=== PATIENT | male | born 1930 | race Caucasian/White ===

== ENCOUNTER 2018-02-21 12:14 | Observation (INO) | payer MEDICARE, OTHER ==
[~2018-02-21] VITALS: Ht 188 cm; Wt 62.3 kg
--- NOTE | ~2018-02-21 | DS ---
PATIENT:FAITH NAVARRO :[birth year] MEDICAL RECORD: [id number] DISCHARGE SUMMARY ADMISSION DATE: 02/21/18 DISCHARGE DATE: 02/22/18 DISCHARGE DIAGNOSES: 1. Atrial fibrillation. 2. Shortness of breath, dyspnea on exertion. 3. Hypertension. 4. Sick sinus syndrome, status post pacemaker. HISTORY AND HOSPITAL COURSE: Mr. Navarro presents with shortness of breath, dyspnea on exertion, atrial fibrillation with rapid response. He is on sotalol. He also has a pacemaker. We performed DC cardioversion, interrogation of the pacemaker with increasing atrial sensitivity and discharged home with no change in medications as he is already on sotalol. Will follow up in 1 month. TRANSINT:[id number] Voice Confirmation ID: [id number] DOCUMENT ID: [id number] DILIA MURRIETA MD at 1710 CC: [id number] DICTATION DATE: 02/22/18 1016 EDGE KITTER: 02/22/18 1201 DIS IN 02/22/18 [facility] [address] [place] [address]
--- NOTE | ~2018-02-21 | HEMODYNAMI ---
PATIENT:FAITH SOTO MEDICAL RECORD: [id number] : [birth year] LOCATION:[facility].211 ADMISSION DATE: 02/21/18 Generatedon:02/22/201810:28 Patient name: FAITH SOTO Patient #: [id number] SSN: : 1930 Date of study: 02/22/2018 Page: Of Hemodynamic Procedure Report Patient Data Patient Demographics Procedure consent was obtained First Name: FAITH Gender: Male Last Name: BRITTANY : 1930 Middle Initial: M Age: 87 year(s) Patient #: [id number] Race: Unknown Additional ID: [id number] Contact details Address: [address] [place] [address] State: [place] City: [place] Zip code: [address] Admission Admission Data Admission Date: 02/21/2018 Admission Time: 12:14 Room #: 2117 Procedure Procedure Types Cath Procedure Diagnostic Procedure Cardioversion External Procedure Description Procedure Date Procedure Date: 02/22/2018 Procedure Start Time: 9:56 Procedure End Time: 10:27 Procedure Staff Name Function Arnoldo Sanz MD Performing Physician Mckenzie Morgan RT Monitor Naresh Rubio RN Nurse Roscoe Arciniega RT Teradata Developer Clay Gottlieb CRNA Additional personnel Procedure Data Cath Procedure Fluoroscopy Diagnostic fluoroscopy Total fluoroscopy Time: 0 time: 0 min min Diagnostic fluoroscopy Total fluoroscopy dose: 0 dose: 0 mGy mGy Contrast Material Contrast Material Type Amount (ml) Isovue 300 0 Estimated blood loss: 0 ml Procedure Complications No complications Procedure Medications Medication Administration Route Dosage Oxygen etCO2 Nasal cannula 6 l/min Refer to Anesthesia Notes for Sedation Medications 0.9% NaCl I.V. 100 ml/hr Hemodynamics Rest Heart Rate: 124 (bpm) Pressure Samples Time Site Value (mmHg) Purpose Heart Use Rate(bpm) 9:56 AO (-5) Snapshot 111 Snapshots Pre Cath Intra NCS Post Cath Vital Signs Time Heart Resp SPO2 etCO2 NIBP (mmHg) Rhythm Pain Sedation Rate (ipm) (%) (mmHg) Status Level (bpm) 9:52:43 104 14 98 23.9 151/116(138) NSR 0 (11) 10(A) , No pain 9:56:55 95 17 99 27.7 128/94(115) NSR 0 (11) 10(A) , No pain 10:00:57 114 16 99 27.7 138/104(130) NSR 0 (11) 10(A) , No pain 10:05:15 105 16 99 27.7 134/62(130) NSR 0 (11) 10(A) , No pain 10:09:19 99 16 99 26.9 150/107(130) NSR 0 (11) 10(A) , No pain 10:13:20 103 16 98 19.4 127/96(113) NSR 0 (11) 10(A) , No pain 10:16:08 60 16 97 17.9 141/78(120) NSR 0 (11) 9(A) , No pain 10:17:43 62 29 95 28.4 135/71(112) NSR 0 (11) 9(A) , No pain 10:21:59 61 16 92 0 122/62(100) NSR 0 (11) 9(A) , No pain 10:26:09 65 16 98 22.4 127/67(102) NSR 0 (11) 9(A) , No pain Medications Time Medication Route Dose Verified Delivered Reason Notes Effectiven ess by by 9:53:59 Oxygen etCO2 6 Arnoldo Infante Per Nasal l/min Yvon Rubio RN physician cannula 9:54:08 Refer to Arnoldo Infante Per Anesthesia Yvon Rubio RN physician Notes for Sedation Medications 9:54:20 0.9% NaCl I.V. 100 Arnoldo Infante Per ml/hr Yvon Rubio RN physician Procedure Log Time Note 9:30:07 Mckenzie Counts RT(R) sent for patient. Start room use. 9:30:49 Time tracking: Regular hours (M-F 7:00 - 5:00) 9:30:54 Plan of Care:Hemodynamics will remain stable., Cardiac rhythm will remain stable., Comfort level will be maintained., Respiratory function will remain adequate., Patient/ family verbilizes understanding of procedure., Procedure tolerated without complication., Recovers from procedure without complications.. 9:45:13 Patient arrived from PCU to CCL 3. Patient remains on bed/stretcher for procedure. 9:45:14 Warm blankets applied, and jordy hugger turned on for patient comfort. 9:45:15 Correct patient and procedure confirmed by team. 9:45:16 Signed procedure consent form obtained from patient. 9:45:16 ECG and BP/O2 sat monitors applied to patient. 9:45:36 Quick Combo opened to sterile field. 9:50:31 Vital chart was started 9:52:44 Rhythm: atrial fibrillation 9:52:45 Full Disclosure recording started 9:53:06 H&P Date Dictated: 02/21/2018 Within 30 days and on chart., H&P Addendum completed by physician on day of procedure. (MUST COMPLETE FOR ALL OUTPATIENTS). 9:53:07 Pre-procedure instructions explained to patient. 9:53:07 Pre-op teaching completed and patient verbalized understanding. 9:53:10 Family in patients room. 9:53:12 Patient NPO since Midnight. 9:53:14 Is the patient allergic to Iodine/contrast media? No. 9:53:16 Is patient on blood thinner?No 9:53:20 Patient diabetic? Yes. 9:53:21 If diabetic: On Metformin? No 9:53:22 Previous problem with sedation/anesthesia? No ? 9:53:24 Snore? No 9:53:25 Sleep apnea? No 9:53:26 Deviated septum? No 9:53:27 Opens mouth fully? Yes 9:53:28 Sticks out tongue? Yes 9:53:30 Airway obstruction? No ? 9:53:32 Dentures? Yes IN 9:53:44 [employer] apprenticeship representative Jerson Edmondson present for procedure. 9:53:53 Patient pain scale 0/10 ?. 9:53:59 Oxygen 6 l/min etCO2 Nasal cannula was administered by Naresh Rubio RN; Per physician; 9:53:59 IV patent on arrival in right forearm with 0.9% NaCl at [facility]. 9:54:01 Lab results completed and on chart. 9:54:06 Alarms reviewed by Cuca Martniez. 9:54:08 Refer to Anesthesia Notes for Sedation Medications was administered by Naresh Rubio RN; Per physician; 9:54:12 Quick combo pads placed on patients chest and back. 9:54:20 0.9% NaCl 100 ml/hr I.V. was administered by Naresh Rubio RN; Per physician; 9:56:15 Procedure started. 9:58:09 Baseline sample Acquired. 10:11:52 Clay Gottlieb CRNA present and monitoring patient for TIVA. 10:12:28 --------ALL STOP TIME OUT------ 10:12:28 Final Timeout: patient, procedure, and site verified with staff and physician. All members of the team are in agreement. 10:12:35 Physical assessment completed. ASA score P 3 - A patient with severe systemic disease as per Arnoldo Sanz MD. 10:12:39 Sedation plan: TIVA Medication:Propofol 10:13:29 Defibrillator synced and charged to 200 Joules. 10:13:31 Shock delivered. 10:13:55 Patient cardioverted to sinus rhythm . 10:14:16 Procedure ended.(Physican Out) 10:14:29 Fluoroscopy time 00.00 minutes. 10:14:30 Fluoroscopy dose: 0 mGy 10:14:30 Flurop Dose total: 0 10:14:32 Contrast amount:Isovue 300 0ml. 10:14:39 Post-procedure physical assessment completed. ASA score P 3 - A patient with severe systemic disease as per Arnoldo Sanz MD. 10:14:44 Post procedure rhythm: sinus rhythm 10:14:47 Estimated blood loss: 0 ml 10:14:48 Post procedure instruction explained to patient.Patient verbalizes understanding. 10:14:49 Patient needs reinforcement of post procedure teaching. 10:14:54 Procedure and supply charges have been captured, reviewed, submitted and are correct. 10:14:57 Procedure Complication : No complications 10:27:05 Vital chart was stopped 10:27:05 See physician's report for complete and final results. 10:27:07 Report given to PCU. 10:27:17 Patient transfered to PCU with Bed. 10:27:19 Procedure ended. 10:27:19 Full Disclosure recording stopped 10:27:22 End room use (Document Last) Device Usage Item Manufacture Quantity Catalog Hospital Part Current Minimal Lot# / Name Number Charge Number Stock Stock Seri al# Code [employer] 1 [id number] Combo Signature Audit [place] Stage Time Signature Unsigned Intra-Procedure 02/22/2018 Roscoe Arciniega 10:28:03 AM RT(R) Signatures Monitor : Mckenzie Signature : Counts RT Date : Time : [id number] [place] [address]
--- NOTE | ~2018-02-21 | HP ---
PATIENT: FAITH NAVARRO MEDICAL RECORD: [id number] ACCOUNT: [id number] LOCATION:[address] : [birth year] ADMISSION DATE: 02/21/18 HISTORY AND PHYSICAL EXAMINATION DIAGNOSES: 1. Atrial fibrillation. 2. History of paroxysmal atrial fibrillation. 3. Hyperlipidemia. HISTORY OF PRESENT ILLNESS: Mr. Navarro presents to [facility] with 2-3 days of palpitations. He is found to be in atrial fibrillation with rapid response and place him on a diltiazem drip. He was having shortness of breath, the sensation of the palpitations since he has been on the diltiazem drip, his heart rates in the 100 range. He no longer has any symptomatology. He, however, does remain in atrial fibrillation. He is on sotalol 120 mg b.i.d. He has been taking extra tablets of the sotalol and extra half tablets make it 160 b.i.d. He was previously on diltiazem. We stopped this 2 months ago secondary to low blood pressure and fatigue. His dose of diltiazem was 240 mg. PHYSICAL EXAMINATION: GENERAL APPEARANCE: Well-nourished, well-developed, appears stated age. Level of distress, comfortable. PSYCHIATRIC: Mental status, alert, normal affect. Orientation, oriented to time, place and person. EYES: Lids and conjunctiva, noninjected. No discharge, no pallor. ENT: Lips, teeth, gums, normal dentition. Oropharynx, no cyanosis, no pallor. NECK: Carotid arteries, bilateral normal upstroke, no bruits, no thrills. JUGULAR VEINS: No jugular venous pressure or distention. CERVICAL LYMPH NODES: Nontender, nonenlarged. THYROID: Not enlarged. Nontender. No nodules. LUNGS: Respiratory effort, unlabored. CHEST: Normal curvature. No thoracic deformity. No chest wall tenderness. Percussion, resonant. Auscultation, clear. No wheezes, no rales, no rhonchi. CARDIOVASCULAR: Heart is irregularly irregular in atrial fibrillation. EXTREMITIES: No cyanosis, no edema. Peripheral pulses, full and equal in all extremities, except as noted. No bruits appreciated. ABDOMEN: Soft, nondistended. Normal aorta. No bruit. Nontender. No masses. Liver, nontender, no hepatomegaly. Spleen, nontender, no splenomegaly. MUSCULOSKELETAL: No joint tenderness. No joint swelling. No erythema. NEUROLOGICAL: Normal gait, normal strength, normal tone. SKIN: Warm and dry. OVERALL IMPRESSION: Atrial fibrillation. We will add back the diltiazem at 180 mg. Hopefully, this will not lower his blood pressure, discontinue the diltiazem drip. If he remains out of rhythm, we will perform DC cardioversion tomorrow. He has had trouble with blood thinners and they refuse any blood thinners of any sort and that he has had a severe bleeding complications with all blood thinners including antiplatelet agents as well as antithrombin agents. His atrial fibrillation has only been 3 days. He has a low likelihood of embolic event with this and with DC cardioversion at this time. TRANSINT:[id number] Voice Confirmation ID: [id number] DOCUMENT ID: [id number] HISTORY AND PHYSICAL [id number] FAITH NAVARRO JEFFREY MD at 1017 CC: [id number] DICTATION DATE: 02/21/18 1533 RAILROAD SUPERVISOR OF ENGINES: 02/21/18 1554 ADM IN [facility] [address] [place] [address]
--- NOTE | ~2018-02-21 | OP ---
PATIENT NAME: FAITH SOTO MEDICAL RECORD: [id number] :[birth year] LOCATION:[address] ADMISSION DATE:02/21/18 SURGEON: DILIA MURRIETA MD DATE OF OPERATION: 02/22/2018 PROCEDURE: DC cardioversion. INDICATION: Atrial fibrillation. PROCEDURE IN DETAIL: IV conscious sedation was performed per anesthesia. Continuous heart rate, O2 saturation, blood pressure monitoring all undertaken, all of which remains stable. He received 1 shock at 275 joules restoring sinus rhythm. OVERALL IMPRESSION: Successful DC cardioversion from atrial fibrillation to sinus rhythm. TRANSINT:[id number] Voice Confirmation ID: [id number] DOCUMENT ID: [id number] DILIA MURRIETA MD at 1710 CC: [id number] DICTATION DATE: 02/22/18 1017 TANK SETTER: 02/22/18 1048 DIS IN 02/22/18 [place] [address] [place] [address]
[2018-02-21] MEDS ORDERED: BETAPACE 80 MG80 MG PO (12:21)
[2018-02-21] MEDS ORDERED: LIPITOR40 MG PO (12:21)
[2018-02-21] MEDS ORDERED: GLUCOTROL XL 5 M5 MG PO (12:22)
[2018-02-21] MEDS ORDERED: FLOMAX0.4 MG PO (12:24)
[2018-02-21] MEDS ORDERED: VESICARE5 MG PO (12:24)
[2018-02-21] MEDS ORDERED: PROSCAR5 MG PO (12:25)
[2018-02-21] MEDS ORDERED: OMEPRAZOLE40 MG PO (12:26)
[2018-02-21] MEDS ORDERED: VISTARIL25 MG PO (12:26)
[2018-02-21] MEDS ORDERED: CARAFATE1 G PO (12:26)
[2018-02-21] MEDS ORDERED: FERROUS SULFAT325 MG PO (12:27)
[2018-02-21] MEDS ORDERED: BAYER CHEWABLE81 MG PO (12:28)
[2018-02-21] MEDS ORDERED: CLARITIN 10 MG10 MG PO (12:28)
[2018-02-21] MEDS ORDERED: NITROSTAT0.4 MG SL (12:29)
[2018-02-21 12:37] VITALS: BP 130/71; Ht 188 cm; Wt 62.3 kg
[2018-02-21 15:09] VITALS: BP 118/69
[2018-02-21 20:24] VITALS: BP 85/67
[2018-02-22 01:38] VITALS: BP 136/73
[2018-02-22 04:54] VITALS: BP 113/58
[2018-02-22 08:44] VITALS: BP 93/53
== END 2018-02-22 13:01 | disposition home or self-care (01) ==
LOC: D.M2 12:14 → OBSVTIME 12:14 → D.M2 12:14
DX: I48.91 Unspecified atrial fibrillation (principal); I10 Essential (primary) hypertension; E78.5 Hyperlipidemia, unspecified; Z95.0 Presence of cardiac pacemaker

== ENCOUNTER 2018-08-09 09:59 | Outpatient (CLI) | payer MEDICARE, OTHER ==
[~2018-08-09] VITALS: Ht 188 cm; Wt 60.9 kg
--- NOTE | ~2018-08-09 | OP ---
PATIENT NAME: FAITH SOTO MEDICAL RECORD: [id number] :[birth year] LOCATION:[facility] ADMISSION DATE: SURGEON: DILIA MURRIETA MD DATE OF OPERATION: 08/09/2018 PROCEDURES: 1. PTCA stent RCA. 2. Intravascular ultrasound RCA. 3. Left heart catheterization. 4. Selective coronary angiography. 5. Left ventriculogram. INDICATION: Angina and coronary artery disease. PROCEDURE IN DETAIL: After informed consent was obtained and after a detailed description of risks, benefits as well as alternative therapies, the patient elected to proceed with angiogram and angioplasty. The right femoral area was prepped and draped in normal sterile fashion. Right femoral artery was cannulated via modified Seldinger technique with placement of 6-Syriac sheath. All catheters exchanged through this sheath. FINDINGS: The left ventriculogram was performed in standard 30-degree CLIFFORD view, reveals global hypokinesis throughout all segments. Overall ejection fraction in the 35% to 40% range. SELECTIVE CORONARY ANGIOGRAPHY: 1. Left main is with no significant angiographic disease. 2. Left anterior descending has previously placed stents, these are widely patent with no significant restenosis. No significant disease elsewise throughout the LAD or its branches. 3. The left circumflex has mild irregularities, but no flow-limiting stenosis. 4. The right coronary artery has previously placed stents. This are widely patent; however, intravascular ultrasound reveals that there is 80% stenosis proximally. VESSEL TRAFFIC OFFICER STENT OF THE RCA: The stent used was a 3.5 x 22 mm Integrity. Result was 0% residual stenosis. OVERALL IMPRESSION: Successful PTCA stent of the RCA going from 80% initial stenosis to 0% residual. TRANSINT:[id number] Voice Confirmation ID: [id number] DOCUMENT ID: [id number] DILIA MURRIETA MD at 1025 CC: [id number] DICTATION DATE: 08/09/18 1143 DIRECTOR OF INSTITUTIONAL RESEARCH: 08/09/18 1218 [facility] CLI 08/09/18 [place] [id number]
--- NOTE | ~2018-08-09 | HEMODYNAMI ---
PATIENT:FAITH SOTO MEDICAL RECORD: [id number] : [birth year] LOCATION:[facility] ADMISSION DATE: 08/09/18 Generatedon:08/09/201811:47 Patient name: FAITH SOTO Patient #: [id number] SSN: : Date of study: 08/09/2018 Page: Of Hemodynamic Procedure Report Patient Data Patient Demographics Procedure consent was obtained First Name: FAITH Gender: Male Last Name: BRITTANY : 1930 Middle Initial: M Age: 87 year(s) Patient #: [id number] Race: Unknown Additional ID: [id number] Contact details Address: [address] [place] [address] State: [place] City: [place] Zip code: [address] Admission Admission Data Admission Date: 08/09/2018 Admission Time: 9:59 Procedure Procedure Types Cath Procedure Diagnostic Procedure LHC LHC w/Coronaries FFR/IVUS Intra-Coronary IVUS Initial PCI Procedure Coronary Stent Coronary Stent Initial Procedure Description Procedure Date Procedure Date: 08/09/2018 Procedure Start Time: 11:24 Procedure End Time: 11:41 Procedure Staff Name Function Arnoldo Sanz MD Performing Physician Bonnie Banuelos RT Monitor Riddhi Alfonso RT Scrub Adam Swanson RN Nurse Procedure Data Cath Procedure Fluoroscopy Diagnostic fluoroscopy Total fluoroscopy Time: 3.6 time: 3.6 min min Diagnostic fluoroscopy Total fluoroscopy dose: 427 dose: 427 mGy mGy Contrast Material Contrast Material Type Amount (ml) Isovue 300 73 Entry Location Entry Primary Successful Side Size Upsize Upsize Entry Closure Succes sful Closure Location (Fr) 1 (Fr) 2 (Fr) Remarks Device Remarks Femoral Right 5 Fr 6 Fr artery Short Estimated blood loss: 10 ml Diagnostic catheters Device Type Used For End Catheter Placement MULTIPACK Pigtail 5 Fr Procedure catheter MULTIPACK JL 4.0 5Fr Procedure catheter MULTIPACK 3DRC 5Fr Procedure catheter Procedure Complications No complications Procedure Medications Medication Administration Route Dosage 0.9% NaCl I.V. 100 ml/hr Oxygen etCO2 Nasal cannula 2 l/min Heparin Flush Bag added to field 2 bags (1000units/500ml NS) Lidocaine 2% added to field 20 Versed I.V. 0.5 mg Fentanyl I.V. 25 mcg Heparin Bolus I.V. 4000 units Integrilin (Bolus I.V. 5.6 ml 2mg/ml) Integrilin (Bolus wasted 4.4 ml 2mg/ml) Plavix P.O. 600 mg Hemodynamics Rest Pre Cath Intra NCS Post Cath Vital Signs Time Heart Resp SPO2 etCO2 NIBP (mmHg) Rhythm Pain Sedation Rate (ipm) (%) (mmHg) Status Level (bpm) 11:13:42 87 28 95 0 147/87(133) NSR 0 (11) 10(A) , No pain 11:18:00 59 13 96 0 144/85(134) NSR 0 (11) 10(A) , No pain 11:22:12 60 19 97 0 143/80(130) NSR 0 (11) 10(A) , No pain 11:26:20 69 12 97 0 150/86(128) NSR 0 (11) 10(A) , No pain 11:30:34 60 11 96 0 150/73(137) NSR 0 (11) 9(A) , No pain 11:34:48 60 18 97 0 145/78(127) NSR 0 (11) 9(A) , No pain 11:38:57 59 13 96 0 134/82(119) NSR 0 (11) 10(A) , No pain Medications Time Medication Route Dose Verified Delivered Reason Notes Effectiveness by by 11:17:43 0.9% NaCl I.V. 100 Adam Adam Per physician ml/hr Sky Swanson RN RN 11:17:53 Oxygen etCO2 2 Adam Adam Per physician Nasal l/min Sky Swanson cannula RN RN 11:18:04 Heparin Flush added 2 Adam Adam used for Bag to bags Sky Swanson procedure (1000units/500ml field PAREKH RN NS) 11:18:15 Lidocaine 2% added 20ml Adam Adam for local to vial Sky Swanson anesthetic field PAREKH RN 11:25:46 Versed I.V. 0.5 Adam Adam for sedation mg Sky Swanson RN RN 11:25:56 Fentanyl I.V. 25 Adam Adam for sedation mcg Sky Swanson RN RN 11:38:01 Heparin Bolus I.V. 4000 Adam Adam for units Sky Swasnon anticoagulation RN RN 11:38:20 Integrilin I.V. 5.6 Adam Adam for (Bolus 2mg/ml) ml Sky Swanson antiplatelet RN RN therapy 11:38:30 Integrilin wasted 4.4 Adam Adam to sharp's (Bolus 2mg/ml) ml Sky Swanson RN RN 11:46:38 Plavix P.O. 600 Adam Adam for mg Sky Swanson antiplatelet RN RN therapy Procedure Log Time Note 10:59:05 Adam Swanson RN sent for patient. Start room use. 10:59:06 Time tracking: Regular hours (M-F 7:00 - 5:00) 10:59:10 Plan of Care:Hemodynamics will remain stable., Cardiac rhythm will remain stable., Comfort level will be maintained., Respiratory function will remain adequate., Patient/ family verbilizes understanding of procedure., Procedure tolerated without complication., Recovers from procedure without complications.. 11:12:26 Patient received from Pre/Post Procedure Room to CCL 2 Alert and oriented. Tansferred to table in Supine position. 11:12:27 Warm blankets applied, and jordy hugger turned on for patient comfort. 11:12:28 Correct patient and procedure confirmed by team. 11:12:29 Signed procedure consent form obtained from patient. 11:12:30 ECG and BP/O2 sat monitors applied to patient. 11:12:32 Vital chart was started 11:12:36 Full Disclosure recording started 11:12:40 H&P Date Dictated: 08/09/2018 Within 30 days and on chart., H&P Addendum completed by physician on day of procedure. (MUST COMPLETE FOR ALL OUTPATIENTS). 11:12:41 Pre-procedure instructions explained to patient. 11:12:41 Pre-op teaching completed and patient verbalized understanding. 11:12:42 Family in waiting room. 11:12:44 Patient NPO since Midnight. 11:12:45 Is the patient allergic to Iodine/contrast media? No. 11:12:46 Was the patient premedicated? No 11:13:00 Patient diabetic? Yes. 11:13:02 If diabetic: On Metformin? No 11:13:06 Previous problem with sedation/anesthesia? No ? 11:13:11 Is patient on blood thinner?No 11:13:12 Snore? Yes 11:13:13 Sleep apnea? Yes 11:13:14 Deviated septum? No 11:13:17 Opens mouth fully? Yes 11:13:23 Sticks out tongue? Yes 11:13:25 Airway obstruction? No ? 11:13:28 Dentures? Yes ? 11:13:32 Pre procedure: right dorsailis pedis pulse 1+ Palpable, but thready & weak; easily obliterated 11:13:34 Pre procedure: left dorsailis pedis pulse 1+ Palpable, but thready & weak; easily obliterated 11:13:37 Patient pain scale 0/10 ?. 11:13:43 IV patent on arrival in left forearm with 0.9% NaCl at [facility]. 11:13:44 Lab results completed and on chart. 11:13:48 Right groin area was prepped with chlora-prep and draped in sterile fashion 11:13:49 Alarms reviewed by R. N. 11:13:49 Sharps counted by scrub and verified by R.N. 11:17:43 0.9% NaCl 100 ml/hr I.V. was administered by Adam Swanson RN; Per physician; 11:17:53 Oxygen 2 l/min etCO2 Nasal cannula was administered by Adam Swanson RN; Per physician; 11:18:04 Heparin Flush Bag (1000units/500ml NS) 2 bags added to field was administered by Adam Swanson RN; used for procedure; 11:18:15 Lidocaine 2% 20ml vial added to field was administered by Adam Swanson RN; for local anesthetic; 11:20:40 Physician arrived 11:20:40 --------ALL STOP TIME OUT------ 11:20:41 Final Timeout: patient, procedure, and site verified with staff and physician. All members of the team are in agreement. 11:20:43 Right groin site verified by team. 11:20:47 Physical assessment completed. ASA score P 2 - A patient with mild systemic disease as per Arnoldo Sanz MD. 11:20:53 Sedation plan: IV Moderate Sedation Medication:Versed, Fentanyl 11:20:57 Use device set Femoral Dx 11:20:58 ACIST Syringe (94449) opened to sterile field. 11:20:58 Bag Decanter (2002S) opened to sterile field. 11:20:59 Medline Cath Pack ([id number]) opened to sterile field. 11:20:59 DIAGNOSTIC WIRE .035 260cm J wire (953641) opened to sterile field. 11:21:01 ACIST Hand Control (16142) opened to sterile field. 11:21:01 ACIST Manifold (54908) opened to sterile field. 11:21:02 DIAGNOSTIC Multipack 5Fr catheter set (HA5393) opened to sterile field. 11:21:03 Tegaderm 4 x 4 (1626W) opened to sterile field. 11:21:05 SHEATH 5FR [place] (TSS478) opened to sterile field. 11:24:43 Procedure started. 11:24:59 Local anesthetic to right femoral artery with Lidocaine 2% by Arnoldo Sanz MD.INITIAL ACCESS ONLY 11:25:09 A 5 Fr sheath was inserted into the Right Femoral artery 11:25:46 Versed 0.5 mg I.V. was administered by Adam Swanson RN; for sedation; 11:25:56 Fentanyl 25 mcg I.V. was administered by Adam Swanson RN; for sedation; 11::56 A MULTIPACK Pigtail 5 Fr catheter was advanced over the wire and used for Procedure. 11:26:49 LV angiography performed. 11:27:00 LV gram done using CLIFFORD 11:27:07 EF : 40 % 11:27:27 Catheter removed. 11:27:48 A MULTIPACK JL 4.0 5Fr catheter was advanced over the wire and used for Procedure. 11:27:51 LCA angiography performed. 11:30:10 Catheter removed. 11:30:17 A MULTIPACK 3DRC 5Fr catheter was advanced over the wire and used for Procedure. 11:30:23 RCA angiography performed. 11:31:23 SHEATH 6FR [place] (XHP846) opened to sterile field. 11:31:24 [place] IVUS Catheter (68572X) opened to sterile field. 11:31:25 CHOICE PT Extra Support 182cm wire ([id number]) opened to sterile field. 11:31:26 INFLATOR Merit BasixCompak (ID1748) opened to sterile field. 11:31:35 Catheter removed. 11:32:08 Sheath upsized to a 6 Fr Short. 11:32:25 6 Fr AR2 guide catheter was inserted over the wire 11:34:54 choice pt ex wire advanced. 11:35:32 Wire advanced across lesion. 11:36:03 IVUS catheter advanced over wire. 11:36:16 IVUS catheter removed over wire. 11:38:01 Heparin Bolus 4000 units I.V. was administered by Adam Swanson RN; for anticoagulation; 11:38:20 Integrilin (Bolus 2mg/ml) 5.6 ml I.V. was administered by Adam Swanson RN; for antiplatelet therapy; 11:38:30 Integrilin (Bolus 2mg/ml) 4.4 ml wasted was administered by Adam Swanson RN; to sharp's; 11:38:35 Place stent Inflation Number: 1 A INTEGRITY RX 3.5 x 22 stent ([id number]) was prepped and advanced across the Prox RCA. The stent was deployed at 17 BREN[place] for 0:06 (min:sec). 11:38:54 EXOSEAL 6Fr (EX600) opened to sterile field. 11:38:58 Wire removed. 11:38:59 Guide catheter removed. 11:39:03 Procedure ended.(Physican Out) 11:39:16 Fluoroscopy time 03.60 minutes. 11:39:23 Fluoroscopy dose: 427 mGy 11:39:23 Flurop Dose total: 427 11:39:31 Contrast amount:Isovue 300 73ml. 11:40:14 Insertion/operative site no bleeding no hematoma. 11:40:17 Post-op/insertion site Right Femoral artery dressed using a 4 x 4 and Tegaderm. 11:40:18 Post Procedure Pulses reassessed and unchanged 11:40:21 Post procedure rhythm: unchanged. 11:40:24 Estimated blood loss: 10 ml 11:40:25 Post procedure instruction explained to patient.Patient verbalizes understanding. 11:41:18 Procedure type changed to Cath procedure, Diagnostic procedure, LHC, C w/Coronaries, FFR/IVUS, Intra-Coronary IVUS Initial, PCI procedure, Coronary Stent, Coronary Stent Initial 11:41:19 Procedure and supply charges have been captured, reviewed, submitted and are correct. 11:41:38 Procedure Complication : No complications 11:41:40 Vital chart was stopped 11:41:41 See physician's report for complete and final results. 11:41:44 Patient transfered to Pre/Post Procedure Room with Stretcher. 11:41:45 Procedure ended. 11:41:45 Full Disclosure recording stopped 11:41:49 End room use (Document Last) 11:41:49 End room use (Document Last) 11:42:12 ACC-PCI Only Patient was given prescriptions, or instructed by Arnoldo Sanz MD to start/continue the following medications upon discharge: Plavix 11:45:47 FEMSTOP Gold (X81734) opened to sterile field. 11:46:38 Plavix 600 mg P.O. was administered by Adam Swanson RN; for antiplatelet therapy; 11:46:50 prevenative femstop . pt has restless legs Intervention Summary Intervention Notes Time ActionType Lesion and Equipment Action# Pressure Duration Attributes Used 11:38:35 Place stent Prox RCA INTEGRITY RX 1 17 00:06 3.5 x 22 stent ([id number]) Device Usage Item Name Manufacture Quantity Catalog Number Hospital Part Current Mini mal Lot# / Charge Number Stock Stock Serial# Code ACIST Acist 1 29598 289174 290675 350211 20 Syringe Medical (43561) Systems Inc Bag Decanter Microtek 1 2001S 425120 19479 202416 5 (2001S) Medical Inc. Medline Cath Medline 1 [id number] 547548 06389 917011 5 Pack ([id number]) DIAGNOSTIC St N[place] 1 595768 933548 273825 753933 30 WIRE .035 260cm J wire (221167) ACIST Hand Acist 1 36152 654915 678165 242823 5 Control Medical (73942) Systems Inc ACIST Acist 1 28770 951373 681238 258476 5 Manifold Medical (10560) Systems Inc DIAGNOSTIC Cardinal 1 EV5162 849800 54126 018614 30 Multipack Health 5Fr catheter set (ZR2837) Tegaderm 4 x 3M 1 1626W 299112 442727 471577 5 4 (1626W) SHEATH 5FR Terumo 1 ZXM677 135839 320196 725648 40 [place] (XTU480) MULTIPACK Cardinal 1 399537 5 Pigtail 5 Fr Health catheter MULTIPACK JL Cardinal 1 789309 5 4.0 5Fr Health catheter MULTIPACK Cardinal 1 459337 5 3DRC 5Fr Health catheter SHEATH 6FR Terumo 1 TFD464 486711 200974 093736 40 [place] (VPO922) [place] 1 93078J 576183 976646 161389 8 [place] IVUS Catheter (42210A) CHOICE PT [place] 1 [id number] 637479 625253 285207 5 Extra Scientific Support 182cm wire ([id number]) INFLATOR Merit 1 NP6337 331444 274351 800683 15 [facility]it [facility] Medical BasixCompak (QA4274) INTEGRITY RX Medtronic 1 [id number] 689893 497017 864082 5 [id number] 3.5 x 22 stent ([id number]) EXOSEAL 6Fr Cardinal 1 EX600 949049 998298 291367 10 (EX600) Health FEMSTOP Gold St [place] 1 L34383 080923 009679 270185 5 ([id number]) Signature Audit [place] Stage Time Signature Unsigned Intra-Procedure 08/09/2018 Bonnie Banuelos 11:47:24 AM RT(R) Signatures Monitor : Bonnie Banuelos Signature : RT Date : Time : [place] [id number] [place] [address]
[~2018-08-09 09:59] MED LIST: BAYER CHEWABLE81 MG PO; BETAPACE 80 MG80 MG PO; CARAFATE1 G PO; CLARITIN 10 MG10 MG PO; FERROUS SULFAT325 MG PO; FLOMAX0.4 MG PO; GLUCOTROL XL 5 M5 MG PO; LIPITOR40 MG PO; NITROSTAT0.4 MG SL; OMEPRAZOLE40 MG PO; PROSCAR5 MG PO; VESICARE5 MG PO; VISTARIL25 MG PO
[2018-08-09] MEDS ORDERED: ISOSORBIDE MONO30 M1 PO (10:13)
[2018-08-09] MEDS ORDERED: CARDIZEM CD180 MG PO (10:13)
[2018-08-09] MEDS ORDERED: ALIGN4 MG PO (10:17)
[2018-08-09 10:33] LABS: BASOPHILS 0.3 % (0-2); EOSINOPHILS 1.4 % (0-7); HEMATOCRIT 41.7 % (42.0-54.0); HEMOGLOBIN 13.2 g/dL (13.5-17.5); IMMATURE GRANULOCYTES 0.3 % (0-5); LYMPHOCYTES 20.4 % (15-50); MCH 29.5 pg (26.0-34.0); MCHC 31.7 g/dL (31.0-37.0); MCV 93.1 fL (80.0-100.0); MEAN PLATELET VOLUME 10.3 fL (7.4-10.4); NEUTROPHILS 70.6 % (40-80); PLATELET COUNT 151 10x3/uL (130-400); RBC 4.48 10x6/uL (4.20-6.10); WBC 7.8 10x3/uL (4.8-10.8)
[2018-08-09 10:34] VITALS: BP 142/78; Ht 188 cm; Wt 60.9 kg
[2018-08-09 10:47] LABS: ANION GAP 2.2 mmol/L (8-16); CALCIUM 8.6 mg/dL (8.5-10.1); CARBON DIOXIDE 26.9 mmol/L (21.0-32.0); CREATININE - SERUM 1.5 mg/dL (0.6-1.3); POTASSIUM - SERUM 4.1 mmol/L (3.5-5.1)
[2018-08-09 10:52] LABS: INR 1.23 (0.85-1.17); PROTIME 14.9 SECONDS (11.6-15.0)
[2018-08-09] MEDS ORDERED: PLAVIX75 MG PO (12:15)
== END 2018-08-09 16:15 | disposition home or self-care (01) ==
LOC: D.CATH 09:59
PROVIDERS: Internal Medicine Interventional Cardiology
DX: I25.119 Atherosclerotic heart disease of native coronary artery with unspecified angina pectoris (principal); Z95.5 Presence of coronary angioplasty implant and graft

== ENCOUNTER → 2018-08-30 18:19 | Outpatient (CLI) | payer MEDICARE, OTHER ==
[2018-08-09 10:34] VITALS: BMI 17.2
[~2018-08-30 18:19] MED LIST changes: +ALIGN4 MG PO; +CARDIZEM CD180 MG PO; +ISOSORBIDE MONO30 M1 PO; +PLAVIX75 MG PO
[2018-08-30 19:27] LABS: BASOPHILS 0.4 % (0-2); EOSINOPHILS 1.8 % (0-7); HEMATOCRIT 40.2 % (42.0-54.0); IMMATURE GRANULOCYTES 0.1 % (0-5); LYMPHOCYTES 18.7 % (15-50); MCH 29.6 pg (26.0-34.0); MCHC 32.3 g/dL (31.0-37.0); MCV 91.6 fL (80.0-100.0); MEAN PLATELET VOLUME 11.1 fL (7.4-10.4); MONOCYTES 7.3 % (2-11); NEUTROPHILS 71.7 % (40-80); PLATELET COUNT 148 10x3/uL (130-400); RBC 4.39 10x6/uL (4.20-6.10); RDW 15.2 % (11.5-14.5); WBC 6.7 10x3/uL (4.8-10.8)
[2018-08-30 19:35] LABS: ALBUMIN 3.4 g/dL (3.4-5.0); ANION GAP 16.7 mmol/L (8-16); BILIRUBIN - TOTAL 0.47 mg/dL (0.2-1.3); CALCIUM 8.6 mg/dL (8.5-10.1); CARBON DIOXIDE 23.8 mmol/L (21.0-32.0); CREATININE - SERUM 1.7 mg/dL (0.6-1.3); DIGOXIN 1.16 ng/mL (0.90-2.00); POTASSIUM - SERUM 4.5 mmol/L (3.5-5.1); PROTEIN - SERUM 6.6 g/dL (6.4-8.2)
[2018-08-30 19:50] LABS: % SATURATION 30 % (15-55); IRON 66 ug/dl (35-150); TOTAL IRON BIND CAPACITY 218 ug/dl (260-445); UNSAT IRON BIND CAPACITY 152 ug/dl (150-375)
[2018-09-01 08:16] LABS: FOLATE (FOLIC ACID) - SERUM 10.5 ng/mL (>3.0)
== END | disposition home or self-care (01) ==
LOC: D.LABREF 18:19
PROVIDERS: Nurse Practitioner
DX: R06.00 Dyspnea, unspecified (principal)